=== PATIENT | male | born 1955 | race American Indian/Alaskan Native ===

== ENCOUNTER 2016-04-23 05:51 | Day surgery (SDC) | payer OTHER ==
[2016-04-23 06:38] LABS: Hematocrit 49.1 % (35.5-45.6); Hemoglobin 16.4 gm/dl (11.8-15.2); Mean Corpuscular HGB Conc 33 % (32-34); Mean Corpuscular Hemoglobin 32 pg (28-32); Mean Corpuscular Volume 96 fl (84-94); Platelet Count 238 K/mm3 (140-440); Red Blood Count 5.12 M/mm3 (3.65-5.03); Red Cell Distribution Width 13.3 % (13.2-15.2); White Blood Count 5.8 K/mm3 (4.5-11.0)
[2016-04-23 06:49] LABS: INR 0.99 (0.87-1.13); Partial Thromboplastin Time 28.7 Sec. (24.2-36.6)
[2016-04-23] MEDS ORDERED: SUBLIMAZE ONE (07:40)
[2016-04-23] MEDS ORDERED: VERSED IV ONE ×2 (07:40→07:46)
[2016-04-23] MEDS ORDERED: SUBLIMAZE IV ONE (07:46)
--- NOTE | 2016-04-23 09:25 | Cat Scan Report ---
CT BIOPSY LIVER: HISTORY: Chronic hepatitis C, abnormal liver function tests. DESCRIPTION OF PROCEDURE: Informed consent was obtained. Sterile technique was utilized. Conscious sedation was accomplished with Versed and fentanyl. The patient was sedated for 20 minutes. Independent cardiorespiratory monitoring by RN. Intra-observer time was [address] guidance, a 17-gauge introducer needle was advanced into the right hepatic lobe. A 2.3 cm 18-gauge core biopsy was obtained for pathology. Follow-up scan demonstrates no evidence for hemorrhage. The patient tolerated the procedure without difficulty. IMPRESSION: Successful CT-guided biopsy of the right hepatic lobe.
[2016-04-23 10:58] VITALS: BP 112/85
== END 2016-04-23 11:00 | disposition home or self-care (01) ==
LOC: OPU 05:51 → EDSTATUS 07:30 → OPU 11:00
PROVIDERS: ATTEND Internal Medicine Gastroenterology
DX: B18.2 Chronic viral hepatitis C (principal); Z87.891 Personal history of nicotine dependence; Z72.89 Other problems related to lifestyle
CPT/HCPCS: 36415; 47000; 77012; 85027; 85610; 85730; 88307; 88313; J2250; J3010